=== PATIENT | male | born 1935 | race Caucasian/White ===

== ENCOUNTER → 2016-10-08 | Outpatient (CLI) | payer MEDICARE, OTHER | LOC: GMAM 15:12 | PROVIDERS: ATTEND Family Medicine | DX: Z79.899 Other long term (current) drug therapy (principal) ==

== ENCOUNTER → 2017-06-23 | Outpatient (CLI) | payer MEDICARE, OTHER | LOC: GMAM 12:16 | PROVIDERS: ATTEND Family Medicine | DX: Z12.5 Encounter for screening for malignant neoplasm of prostate (principal) ==

== ENCOUNTER → 2017-07-03 | Outpatient (CLI) | payer MEDICARE, OTHER | LOC: GMAM 11:36 | PROVIDERS: ATTEND Family Medicine | DX: E87.5 Hyperkalemia (principal) ==

== ENCOUNTER → 2017-12-09 | Outpatient (CLI) | payer MEDICARE, OTHER | LOC: GMAM 10:35 | PROVIDERS: ATTEND Family Medicine | DX: I10 Essential (primary) hypertension (principal) ==

== ENCOUNTER → 2018-11-29 | Outpatient (CLI) | payer MEDICARE, OTHER | LOC: GMAM 10:47 | PROVIDERS: ATTEND Family Medicine | DX: Z12.5 Encounter for screening for malignant neoplasm of prostate (principal) ==

== ENCOUNTER → 2019-11-22 | Outpatient (CLI) | payer MEDICARE, OTHER | LOC: GMAM 17:10 | PROVIDERS: ATTEND Family Medicine | DX: L03.115 Cellulitis of right lower limb (principal) ==

== ENCOUNTER → 2020-02-15 | Outpatient (CLI) | payer MEDICARE, OTHER | LOC: GMAM 14:33 | PROVIDERS: ATTEND Family Medicine | DX: Z12.5 Encounter for screening for malignant neoplasm of prostate (principal); E78.2 Mixed hyperlipidemia; I10 Essential (primary) hypertension; E87.5 Hyperkalemia | CPT/HCPCS: 83970; G0103 ==